=== PATIENT | male | born 1990 | race Caucasian/White ===

== ENCOUNTER 2020-05-03 19:01 | Emergency (ER) | payer OTHER ==
[~2020-05-03] VITALS: Ht 185.4 cm; Wt 103.4 kg
[2020-05-03 21:34] LABS: RSV AMPLIFICATION NEGATIVE (NEGATIVE)
[2020-05-03 21:58] VITALS: BP 145/82
== END 2020-05-03 22:02 | disposition home or self-care (01) ==
LOC: M ED 19:01
DX: R51.9 Headache, unspecified (principal); R11.0 Nausea; Z20.828 Contact with and (suspected) exposure to other viral communicable diseases